=== PATIENT | male | born 1990 | race Asian ===

== ENCOUNTER 2016-07-16 08:13 | Emergency (ER) | payer OTHER ==
[~2016-07-16] VITALS: Ht 167.6 cm; Wt 68.2 kg
[2016-07-16 10:28] LABS: INFLUENZA TYPE B NEGATIVE FOR TYPE B (NEGATIVE)
[2016-07-16 10:56] VITALS: BP 130/81
== END 2016-07-16 10:59 | disposition home or self-care (01) ==
LOC: EMS 08:15
DX: J02.9 Acute pharyngitis, unspecified (principal); J40 Bronchitis, not specified as acute or chronic
CPT/HCPCS: 87804; 99285